=== PATIENT | female | born 1940 | race Asian ===

== ENCOUNTER 2019-05-31 04:22 | Emergency (ER) | payer MEDICARE, OTHER ==
[~2019-05-31] VITALS: Ht 160 cm; Wt 56.8 kg
[~2019-05-31 04:22] MED LIST: LEVO25TA9 PO; MULT-1259 PO; OLME40TA8 PO; ROSU20TA23 PO
[2019-05-31] MEDS ORDERED: LEVO50 PO (05:03)
[2019-05-31] MEDS ORDERED: METF-445 PO (05:03)
[2019-05-31] MEDS ORDERED: CHOL100018 PO (05:03)
[2019-05-31] MEDS ORDERED: METO25XL PO (05:03)
[2019-05-31] MEDS ORDERED: ROSU10TA22 PO (05:03)
[2019-05-31] MEDS ORDERED: ASPI-1182 PO (05:03)
[2019-05-31 05:24] LABS: BASOPHILS % (AUTO) 1.1 % (0.0-2.0); EOSINOPHILS % (AUTO) 1.2 % (1.0-6.0); HEMATOCRIT 40.7 % (36-46); HEMOGLOBIN 13.5 g/dL (12.0-16.0); LYMPHOCYTES # (AUTO) 2.8 K/uL (1.0-4.8); LYMPHOCYTES % (AUTO) 26.9 % (22.0-44.0); MEAN CORPUSCULAR HEMOGLOBIN 30.8 pg (26.0-34.0); MEAN CORPUSCULAR HGB CONC 33.2 G/dL (31.0-37.0); MEAN CORPUSCULAR VOLUME 93 fL (80-100); MONOCYTES # (AUTO) 0.7 K/uL (0.1-1.0); MONOCYTES % (AUTO) 6.7 % (2.0-9.0); NEUTROPHILS # (AUTO) 6.6 K/uL (1.8-7.7); NEUTROPHILS % (AUTO) 64.1 % (40.0-70.0); PLATELET COUNT (AUTO) 180 K/uL (150-450); RED BLOOD CELL COUNT(AUTO) 4.37 MIL/uL (4.00-5.20); RED CELL DISTRIBUTION WIDTH 12.9 % (11.5-14.5)
[2019-05-31 05:35] LABS: ANION GAP 8 mmol/L (8-16); CALCIUM, TOTAL 8.9 mg/dL (8.8-10.5); CARBON DIOXIDE 29 mmol/L (22-29); CHLORIDE 101 mmol/L (98-107); CREATININE 0.76 mg/dL (0.60-1.30); GLUCOSE,RANDOM 98 mg/dL (70-110); SODIUM SERUM 138 mmol/L (136-145); UREA NITROGEN, BLOOD 8 mg/dL (7-18)
[2019-05-31 05:36] LABS: GLOMERULAR FILTR. RATE CALC > 60 mL/min (>60)
[2019-05-31 05:36] LABS: GLUCOSE,POINT OF CARE 98 MG/DL (70-110)
[2019-05-31 05:41] LABS: ALANINE AMINOTRANSFERASE 37 U/L (12-78); ALBUMIN 3.9 g/dL (3.4-5.0); ALKALINE PHOSPHATASE 65 U/L (46-116); ASPARTATE AMINOTRANSFERASE 38 U/L (15-37); BILIRUBIN,TOTAL 0.4 mg/dL (0.1-1.0); LIPASE 274 U/L (73-393); TOTAL PROTEIN, SERUM 7.9 g/dL (6.4-8.2)
[2019-05-31 05:42] LABS: APPEARANCE,URINE CLEAR (CLEAR); BILIRUBIN,URINE NEGATIVE (NEGATIVE); GLUCOSE, URINE (UA) NEGATIVE (NEGATIVE); KETONES,URINE NEGATIVE (NEGATIVE); LEUKOCYTE ESTERASE ,URINE NEGATIVE (NEGATIVE); NITRATE,URINE NEGATIVE (NEGATIVE); OCCULT BLOOD,URINE TRACE (NEGATIVE); PH,URINE 6.5 (5.0-8.0); PROTEIN,URINE NEGATIVE (NEGATIVE); UROBILINOGEN,URINE 0.2 mg/dL (<=1.0)
[2019-05-31 06:09] LABS: BACTERIA,URINE Few /HPF (None Seen); RBC,URINE 0-2 /HPF (0-2); SQUAMOUS EPITHELIAL CELL,UR Rare /LPF (None Seen); WBC,URINE 0-2 /HPF (0-5)
[2019-05-31] MEDS ORDERED: SODIUM CHLORIDE 0.9% 100 ML ONE ×2 (07:52→08:56)
[2019-05-31] MEDS ORDERED: IOVERSOL 350 MG/ML 100 ML VIAL ONE (07:52)
[2019-05-31] MEDS ORDERED: IOVERSOL 320 MG/ML 100 ML VIAL ONE (08:56)
[2019-05-31] MEDS ORDERED: IBUPROFEN 600 MG TABLET PO ONE (12:00)
[2019-05-31 13:53] VITALS: BP 128/75
== END 2019-05-31 14:39 | disposition home or self-care (01) ==
LOC: EMS 04:22
DX: K80.20 Calculus of gallbladder without cholecystitis without obstruction (principal); N83.202 Unspecified ovarian cyst, left side; R93.89 Abnormal findings on diagnostic imaging of other specified body structures; E11.9 Type 2 diabetes mellitus without complications; E03.9 Hypothyroidism, unspecified; Z79.82 Long term (current) use of aspirin; Z79.84 Long term (current) use of oral hypoglycemic drugs
CPT/HCPCS: 36415; 74177; 76856; 80053; 81001; 82962; 83690; 84484; 85025; 99284; J7050; Q9967 ×2